=== PATIENT | male | born 1955 | race American Indian/Alaskan Native ===

== ENCOUNTER 2017-09-04 23:54 | Emergency (ER) | payer SELFPAY ==
[~2017-09-04 23:54] MED LIST: QUELICIN ONE; VERSED IV ONE
[2017-09-05] MEDS ORDERED: NACL 0.9% 1000 ML 1,000 ML IV ONE ×2 (00:05→00:15)
[2017-09-05 00:24] LABS: Basophils % (Auto) 0.9 % (0.0-1.8); Eosinophils % (Auto) 3.4 % (0.0-4.3); Hematocrit 35.1 % (35.5-45.6); Hemoglobin 11.6 gm/dl (11.8-15.2); Mean Corpuscular HGB Conc 33 % (32-34); Mean Corpuscular Hemoglobin 34 pg (28-32); Mean Corpuscular Volume 102 fl (84-94); Platelet Count 181 K/mm3 (140-440); Red Blood Count 3.44 M/mm3 (3.65-5.03); Red Cell Distribution Width 11.5 % (13.2-15.2); White Blood Count 8.5 K/mm3 (4.5-11.0)
[2017-09-05 00:38] LABS: Anion Gap 25 mmol/L; BUN/Creatinine Ratio 9; Blood Urea Nitrogen 12 mg/dL (9-20); Calcium 8.4 mg/dL (8.4-10.2); Carbon Dioxide 19 mmol/L (22-30); Chloride 104.7 mmol/L (98-107); Glucose 178 mg/dL (75-100); Potassium 3.6 mmol/L (3.6-5.0); Sodium 145 mmol/L (137-145)
[2017-09-05] MEDS ORDERED: NACL 0.9% 1000 ML 1,000 ML ONE (00:41)
[2017-09-05] MEDS ORDERED: QUELICIN IV ONE (00:41)
[2017-09-05] MEDS ORDERED: DIPRIVAN 10 MG/ML 1,000 MG/100 ML BOTTLE IV ONE ×2 (00:55→04:09)
[2017-09-05] MEDS ORDERED: VERSED IV NR ×2 (01:00→02:00)
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
[2017-09-05] MEDS ORDERED: VASELINE LIP THERAPY TP PRN (01:22)
[2017-09-05] MEDS ORDERED: ARTIFICIAL TEARS OPHTH OINT OU PRN (01:22)
[2017-09-05] MEDS ORDERED: DIPRIVAN 10 MG/ML 1,000 MG/100 ML BOTTLE IV SCH (02:00)
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
[2017-09-05 02:22] LABS: ISTAT Base Excess -4; ISTAT HCO3 19.1; ISTAT PCO2 22.6 (35-45); ISTAT PH 7.533 (7.35-7.45); ISTAT PO2 142 (80-105); ISTAT SO2 100; ISTAT TCO2 20
[2017-09-05] MEDS ORDERED: fentaNYL DRIP Premix 2,000 MCG/100 ML BAG IV SCH ×2 (02:22→03:00)
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
[2017-09-05 03:00] LABS: INR 1.1 (0.87-1.13); Partial Thromboplastin Time 23.7 Sec. (24.2-36.6)
[2017-09-05 03:52] VITALS: BP 114/85
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
== END 2017-09-05 03:52 | disposition other institution (70) ==
LOC: ED 23:54
DX: S02.30XA Fracture of orbital floor, unspecified side, initial encounter for closed fracture (principal); S32.9XXA Fracture of unspecified parts of lumbosacral spine and pelvis, initial encounter for closed fracture; S31.819A Unspecified open wound of right buttock, initial encounter; R41.0 Disorientation, unspecified; I95.9 Hypotension, unspecified; X95.8XXA Assault by other firearm discharge, initial encounter; Y93.9 Activity, unspecified; Y99.9 Unspecified external cause status; Y92.89 Other specified places as the place of occurrence of the external cause
CPT/HCPCS: 31500; 36415; 36430; 70450; 70486; 71010; 71250; 74000; 74176; 80048; 82803; 82962; 85025; 85610; 85730; 86850; 86900; 86901; 86920; 96374; 99291; G0480; J0330; J2250; J2704; J3010; J7030; P9016; 80320; 94002

== ENCOUNTER 2017-09-23 16:53 | Emergency (ER) | payer SELFPAY ==
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
[2017-09-23 17:19] LABS: Eosinophils % (Auto) 0.3 % (0.0-4.3); Hematocrit 36.4 % (35.5-45.6); Mean Corpuscular HGB Conc 33 % (32-34); Mean Corpuscular Hemoglobin 32 pg (28-32); Mean Corpuscular Volume 96 fl (84-94); Platelet Count 523 K/mm3 (140-440); Red Cell Distribution Width 14.3 % (13.2-15.2); White Blood Count 14.7 K/mm3 (4.5-11.0)
[2017-09-23 17:34] LABS: Partial Thromboplastin Time 25.1 Sec. (24.2-36.6)
[2017-09-23 17:38] LABS: Creatine Kinase MB 1.6 ng/mL (0.0-4.0)
[2017-09-23 17:40] LABS: Albumin 3.8 g/dL (3.9-5); Albumin/Globulin Ratio 0.9 %; BUN/Creatinine Ratio 19; Blood Urea Nitrogen 15 mg/dL (9-20); Calcium 9.4 mg/dL (8.4-10.2); Carbon Dioxide 26 mmol/L (22-30); Chloride 97.1 mmol/L (98-107); Glucose 159 mg/dL (75-100); Magnesium 1.9 mg/dL (1.7-2.3); Sodium 138 mmol/L (137-145); Total Protein 8.2 g/dL (6.3-8.2)
[2017-09-23] MEDS ORDERED: KEPPRA 1,000 MG/NS 0.75% 100ML 1,000 MG/100 ML BAG IV ONE (17:43)
[2017-09-23] MEDS ORDERED: APRESOLINE IV ONE (17:43)
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
[2017-09-23 18:00] LABS: Anion Gap 19 mmol/L; Potassium 4.4 mmol/L (3.6-5.0)
[2017-09-23 18:01] LABS: Alanine Aminotransferase 13 units/L (7-56); Alkaline Phosphatase 123 units/L (35-129); Creatine Kinase 51 units/L (55-170)
--- NOTE | 2017-09-23 18:21 | Cat Scan Report ---
FINAL REPORT PROCEDURE: CT CERVICAL SPINE WO CON TECHNIQUE: Computerized tomography of the cervical spine was performed from the skull base to T1 without contrast material. HISTORY: fall weakness COMPARISON: No prior studies are available for comparison. FINDINGS: Cervical lordosis is straightened. There is no subluxation. No significant arthritic changes are seen. No prevertebral edema is seen. No C-spine fracture is seen. IMPRESSION: No C-spine fracture is seen.
[2017-09-23 18:25] LABS: Bilirubin,Urine NEG (Negative); Blood,Urine NEG (Negative); Ketones,Urine NEG (Negative); Leukocyte Esterase,Urine SM (Negative); Mucus,Urine FEW /HPF; Nitrite,Urine NEG (Negative); Protein,Urine <15 mg/dL mg/dL (Negative)
[2017-09-23 18:47] VITALS: BP 163/102
--- NOTE | 2017-09-24 07:29 | XRay Report ---
Single view chest: Compared to 09/05/17. History: Fall and weakness. Findings: Normal cardiomediastinal silhouette. Trachea is midline. No consolidation, pneumothorax or pleural effusion. Impression: No acute cardiopulmonary findings.
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
== END 2017-09-23 19:00 | disposition short-term general hospital (02) ==
LOC: ED 16:53
DX: S06.5X2A Traumatic subdural hemorrhage with loss of consciousness of 31 minutes to 59 minutes, initial encounter (principal); W18.39XA Other fall on same level, initial encounter; Y93.89 Activity, other specified; Y99.8 Other external cause status; Y92.89 Other specified places as the place of occurrence of the external cause
CPT/HCPCS: 36415; 70450; 71010; 72125; 72170; 80053; 81001; 82550; 82553; 82962; 83735; 84484; 85025; 85610; 85670; 85730; 93005; 93010; 96374; 96375; 99291; J0360; J1953

== ENCOUNTER 2017-10-19 19:24 | Emergency (ER) | payer SELFPAY ==
[2017-10-19 19:47] VITALS: BP 176/99
== END 2017-10-19 21:00 | disposition left against medical advice (07) ==
LOC: ED 19:24
DX: R52 Pain, unspecified (principal); Z53.21 Procedure and treatment not carried out due to patient leaving prior to being seen by health care provider

== ENCOUNTER 2018-07-01 16:38 | Emergency (ER) | payer MEDICAID, OTHER ==
[2018-07-01 17:57] VITALS: BP 146/86
--- NOTE | 2018-07-01 20:50 | Cat Scan Report ---
FINAL REPORT EXAM: CT HEAD/BRAIN WO CON HISTORY: head pain TECHNIQUE: Standard unenhanced CT of the head at 5.0 millimeter axial increments. PRIORS: CT head 09/23/2017 FINDINGS: The ventricular system is normal in size and configuration. There is no evidence for parenchymal volume loss. 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 There is no evidence for mass lesion, mass effect, midline shift, acute intracranial hemorrhage, or acute ischemia/ infarction. No evidence for acute skull fracture is seen. Evidence for prior craniotomy in the left frontal temporal region is seen. There is dural thickening with calcification beneath the craniotomy site. No abnormality in the overlying scalp soft tissues is seen. Visualized paranasal sinuses are clear. IMPRESSION: Postsurgical changes in the left frontal temporal region. No acute intracranial process noted.
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
== END 2018-07-01 23:24 | disposition home or self-care (01) ==
LOC: ED 16:38
DX: R51 Headache (principal); N39.44 Nocturnal enuresis
CPT/HCPCS: 70450